=== PATIENT | male | born 1995 | race Hispanic/Latino ===

== ENCOUNTER 2021-04-25 14:16 | Emergency (ER) | payer MEDICARE ==
[~2021-04-25] VITALS: Ht 175.3 cm; Wt 108.9 kg
[2021-04-25 15:03] VITALS: BP 144/82
== END 2021-04-25 18:20 | disposition left against medical advice (07) ==
LOC: EDH 14:16
DX: R05.9 Cough, unspecified (principal); Z53.21 Procedure and treatment not carried out due to patient leaving prior to being seen by health care provider

== ENCOUNTER 2021-11-02 02:54 | Emergency (ER) | payer MEDICARE ==
[~2021-11-02] VITALS: Ht 175.3 cm; Wt 113.4 kg
[2021-11-02] MEDS ORDERED: ACETAMINOPHEN 325 MG TAB ONE (03:13)
[2021-11-02 04:35] VITALS: BP 140/86
== END 2021-11-02 04:41 | disposition home or self-care (01) ==
LOC: EDH 02:54
DX: R51.9 Headache, unspecified (principal); I10 Essential (primary) hypertension; Z20.822 Contact with and (suspected) exposure to COVID-19
CPT/HCPCS: 99284; 71045; 87635; 87804 ×2; C9803

== ENCOUNTER 2023-02-28 18:16 | Emergency (ER) | payer MEDICARE ==
[~2023-02-28] VITALS: Ht 175.3 cm; Wt 108.9 kg
[2023-02-28 18:19] VITALS: BP 112/63; PULSE 79; RESP 16; O2SAT 99
== END 2023-02-28 19:00 | disposition left against medical advice (07) ==
LOC: EDH 18:16
DX: T16.2XXA Foreign body in left ear, initial encounter (principal); Z53.21 Procedure and treatment not carried out due to patient leaving prior to being seen by health care provider
CPT/HCPCS: 99281